=== PATIENT | male | born 1960 | race American Indian/Alaskan Native ===

== ENCOUNTER 2016-08-20 12:23 | Emergency (ER) | payer SELFPAY ==
[2016-08-20 18:19] VITALS: BP 138/86
--- NOTE | 2016-08-21 22:05 | Emergency Department Report ---
Entered by RALPH PETERS, acting as scribe for NAYLA DEJESUS NP. ED ENT HPI - General Chief complaint: Earache Stated complaint: EAR INFECTION ON THE JOB Time Seen by Provider: 08/20/16 16:13 Source: patient Mode of arrival: Ambulatory Limitations: No Limitations - History of Present Illness Initial comments: 55 year old male with no significant PMHx presents to the ED c/o a right earache that began 2 weeks ago. Rates pain a 6/10 in severity. Associated symptoms include headache and clear right ear drainage, but he denies facial pain and swelling, nausea, vomiting, numbness, tingling, fever, and chills. Patient states that he does not currently have a headache. Notes he used OTC ear drops (does not remember the name) and cotton swabs with hydrogen peroxide with no relief. Denies tobacco use and EtOH consumption. NKDA. complaint: ear pain (right ear with clear drainage) Onset/Timin -: week(s) Location: R ear Severity: moderate Severity scale (0 -10): 6 Quality: aching Consistency: constant Improves with: none (OTC ear drops and cotton swabs with hydrogen peroxide with no relief) Worsens with: none Associated Symptoms: discharge from ear (right ear), other (headache and clear right ear drainage, but denies chills). denies: fever, cough, pain with swallowing, sore throat - Related Data Previous Rx's Medication Instructions Recorded Last Taken Type Ibuprofen [Motrin 600 MG tab] 600 mg PO Q8H PRN 7 Days 08/20/16 Unknown Rx Ofloxacin [Ocuflox 0.3%] 10 drops OP QID 7 Days 08/20/16 Unknown Rx Allergies Allergy/AdvReac Type Severity Reaction Status Date / Time No Known Allergies Allergy Unverified 08/20/16 13:08 ED Dental HPI - General Chief complaint: Earache Stated complaint: EAR INFECTION ON THE JOB Time Seen by Provider: 08/20/16 16:13 Source: patient Mode of arrival: Ambulatory Limitations: No Limitations - History of Present Illness MD complaint: ear pain Onset/Timin -: week(s) Severity: moderate Quality: aching Consistency: constant Improves with: none (OTC ear drops and cotton swabs with hydrogen peroxide with no relief) Worsens with: none Dental Associated Symptons: Yes: Headache, Earache. No: Fever - Related Data Previous Rx's Medication Instructions Recorded Last Taken Type Ibuprofen [Motrin 600 MG tab] 600 mg PO Q8H PRN 7 Days 08/20/16 Unknown Rx Ofloxacin [Ocuflox 0.3%] 10 drops OP QID 7 Days 08/20/16 Unknown Rx Allergies Allergy/AdvReac Type Severity Reaction Status Date / Time No Known Allergies Allergy Unverified 08/20/16 13:08 ED Review of Systems Comment: All other systems reviewed and negative Constitutional: denies: chills, diaphoresis, fever, other (tingling) ENT: ear pain, other (ear drainage). denies: throat pain, hearing loss Respiratory: denies: cough, orthopnea, shortness of breath, SOB with exertion, SOB at rest Cardiovascular: denies: chest pain, dyspnea on exertion, orthopnea Gastrointestinal: denies: nausea, vomiting Musculoskeletal: denies: other (facial pain) Skin: denies: other (facial swelling) Neurological: headache (patient does not currently have a headache). denies: numbness ED Past Medical Hx - Past Medical History Previous Medical History?: No - Surgical History Past Surgical History?: No - Social History Smoking Status: Never Smoker Substance Use Type: None - Medications Home Medications: Home Medications Medication Instructions Recorded Confirmed Last Taken Type Ibuprofen [Motrin 600 MG tab] 600 mg PO Q8H PRN 7 Days 08/20/16 Unknown Rx Ofloxacin [Ocuflox 0.3%] 10 drops OP QID 7 Days 08/20/16 Unknown Rx ED Physical Exam - General Limitations: No Limitations General appearance: alert, in no apparent distress - Head Head exam: Present: atraumatic, normocephalic - Eye Eye exam: Present: normal appearance, EOMI Pupils: Present: normal accommodation - ENT ENT exam: Present: mucous membranes moist, other (unable to visualize right ear drum). Absent: TM's normal bilaterally (right ear erythema with clear drainage) , normal external ear exam (clear discharge present) - Expanded ENT Exam Expanded Ear exam: Absent: other (tenderness behind right ear) TM/Canal exam: Erythema: Right TM, Cerumen Impaction: Right TM, Mastoid Tenderness: Right TM (right mastoid tenderness is absent), Canal Discharge: Right TM (clear discharge) - Neck Neck exam: Present: normal inspection, full ROM. Absent: tenderness, lymphadenopathy - Respiratory Respiratory exam: Present: normal lung sounds bilaterally. Absent: respiratory distress, wheezes, rales, rhonchi, stridor - Cardiovascular Cardiovascular Exam: Present: regular rate, normal rhythm. Absent: systolic murmur, diastolic murmur, rubs, gallop - Extremities Exam Extremities exam: Present: normal inspection, full ROM - Back Exam Back exam: Present: normal inspection, full ROM - Neurological Exam Neurological exam: Present: alert, oriented X3 - Psychiatric Psychiatric exam: Present: normal affect, normal mood - Skin Skin exam: Present: warm, dry, intact, other (minimal right ear swelling). Absent: rash ED Course Vital Signs 08/20/16 08/20/16 13:08 17:15 Temperature 97.4 F L Pulse Rate 68 71 Respiratory 18 16 Rate Blood Pressure 143/76 Blood Pressure 138/86 [Left] O2 Sat by Pulse 96 100 Oximetry ED Medical Decision Making - Medical Decision Making ED course: 55-year-old male that presents with otitis externa 1- patient did not seem toxic or ill appearance. No signs and distress noted. 2- I instructed the patient to take prescription as directed to affected ear. 3- I examined the left ear canal with due to cermun impaction and discharde I'm unable to visualize the ear drum. 4- at the time of discharge the patient is nontoxic in appearance. 5- and agrees to discharge plan and treatment. No further questions noted by the patient. 6- patient stated will follow-up with the ENT doctor. ED Disposition Clinical Impression: Otitis externa Disposition: DISCHARGED TO HOME OR SELFCARE Is pt being admited?: No Does the pt Need Aspirin: No Condition: Stable Instructions: Ibuprofen (By mouth), Ofloxacin (Into the ear), Otitis Externa ( ED) Additional Instructions: Please follow up with her primary care and ENT doctor in 3-5 days. If symptoms worsens report back to emergency room. take medication as prescribed to affected ear. Prescriptions: Ibuprofen [Motrin 600 MG tab] 600 mg PO Q8H PRN 7 Days PRN Reason: Pain Ofloxacin [Ocuflox 0.3%] 10 drops OP QID 7 Days Referrals: PRIMARY CARE, [Primary Care Provider] - 3-5 Days [facility] [Outside] - 3-[address] [facility] [Outside] - 3-[address] [facility] [Provider Group] - 3-5 Days Forms: Work/School Release Form(ED) This documentation as recorded by the LORRAINE rhoades JASMINE,accurately reflects the service I personally performed and the decisions made by me,NAYLA DEJESUS, DEEP.
== END 2016-08-20 17:35 | disposition home or self-care (01) ==
LOC: ED 12:23
DX: H60.91 Unspecified otitis externa, right ear (principal)
CPT/HCPCS: 99282